=== PATIENT | male | born 1950 | race American Indian/Alaskan Native ===

== ENCOUNTER 2018-03-24 07:28 | Emergency (ER) | payer OTHER ==
[2018-03-24] MEDS ORDERED: DELTASONE PO ONE (09:31)
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
[2018-03-24 09:55] VITALS: BP 139/83
== END 2018-03-24 10:00 | disposition home or self-care (01) ==
LOC: ED 07:28
DX: S16.1XXA Strain of muscle, fascia and tendon at neck level, initial encounter (principal); Z88.5 Allergy status to narcotic agent; V43.52XA Car driver injured in collision with other type car in traffic accident, initial encounter; Y93.89 Activity, other specified; Y92.488 Other paved roadways as the place of occurrence of the external cause; Y99.8 Other external cause status
CPT/HCPCS: 99282; J7512